=== PATIENT | female | born 1990 | race African-American/Black ===

== ENCOUNTER 2019-06-23 18:28 | Emergency (ER) | payer BC ==
[~2019-06-23] VITALS: Ht 162.6 cm; Wt 154.2 kg
--- NOTE | 2019-06-23 20:23 | Diagnostic Imaging Report ---
EXAMINATION: CHEST 2 VIEWS INDICATION: Chest pain. COMPARISON: None FINDINGS: TUBES and LINES: None. LUNGS: Lungs are well inflated. Mild perihilar, peribronchial thickening and perihilar streaky densities may reflect viral infection versus reactive airway disease. There is no evidence of pneumonia or pulmonary edema. PLEURA: No pleural effusion or pneumothorax. HEART AND MEDIASTINUM: The cardiomediastinal silhouette is unremarkable. BONES AND SOFT TISSUES: No acute osseous lesion. Soft tissues are unremarkable. UPPER ABDOMEN: No free air under the diaphragm. IMPRESSION: Mild perihilar, peribronchial thickening and perihilar streaky densities may reflect viral infection versus reactive airway disease. Signed by: Dr. Anat Joshua M.D. on 06/23/2019 8:21 PM
== END 2019-06-23 21:58 | disposition home or self-care (01) ==
LOC: ER 18:28
DX: R07.89 Other chest pain (principal); R05 Cough; J20.9 Acute bronchitis, unspecified
CPT/HCPCS: 71046; 93005; 99283